=== PATIENT | female | born 1945 | race Caucasian/White ===

== ENCOUNTER 2016-06-05 20:09 | Inpatient (IN) | payer OTHER, MEDICARE ==
--- NOTE | ~2016-06-05 | EKG ---
PATIENT: ELIZABETH PEREZ UNIT #: [id number] Ventricular Rate: 152 BPM Atrial Rate: 147 BPM QRS Duration: 78 ms Q-T Interval: 342 ms QTC Calculation(Bezet): 543 ms Calculated R [place]: -9 degrees Calculated T [place]: -33 degrees Diagnosis Line: Atrial fibrillation with rapid ventricular Diagnosis Line: response Diagnosis Line: ST and T wave abnormality, consider lateral ischemia Diagnosis Line: Abnormal ECG Diagnosis Line: When compared with ECG of 15-DEC-2015 13:21, Diagnosis Line: Significant changes have occurred Diagnosis Line: Confirmed by FREDI SHER MD ([id number]) on Diagnosis Line: 06/06/2016 10:49:01 PM INTERPRETING MD: CHRISTO
--- NOTE | ~2016-06-05 | CR72 ---
[facility] A Service of [facility] RADIOLOGY TEXT RESULTS PATIENT: ELIZABETH PEREZ LOCATION: [facility] : 45 UNIT #: [id number] AGE: [address]: Miguel Angel Alvarenga MD SEX: F ORDER DR: [id number] [address] [address] [id number] E MR#: [id number] #: [id number] NAME: ELIZABETH PEREZ : 1945 SEX: F STUDY DATE/TIME: 06/05/2016 19:50 UNIT: JERMAINE ROOM: STUDY DESCRIPTION: CR Chest Single View Portable Attending Physician: Danay Mustafa M.D. Ordering Physician: Danay Mustafa M.D. Primary Care Physician: No Primary Care Physician MEDICAL IMAGING REPORT This report is preliminary unless electronic signature is present EXAM Portable chest. DATE OF EXAM 06/05/2016 INDICATIONS Weakness, shortness of air since 06/05/2016. PROCEDURE Frontal view chest. COMPARISON 12/15/2015 FINDINGS Heart size is unchanged. No dense consolidation, effusion or pneumothorax. IMPRESSION No active process. No change from 12/15/2015. Dictated by... Stefan Curry M.D. THIS IS AN ELECTRONICALLY VERIFIED REPORT Stefan Curry M.D. at 06/07/2016 7:00 AM EED/willie TD: 06/05/2016 23:04 JOB #: [id number] MEDICAL IMAGING REPORT [facility] A Service of [facility] RADIOLOGY TEXT RESULTS PATIENT: ELIZABETH PEREZ LOCATION: [facility] : 45 UNIT #: [id number] AGE: [address]: Miguel Angel Alvarenga MD SEX: F ORDER DR: COPY
--- NOTE | ~2016-06-05 | EKG ---
PATIENT: ELIZABETH PEREZ UNIT #: [id number] Ventricular Rate: 118 BPM Atrial Rate: 118 BPM P-R Interval: 150 ms QRS Duration: 78 ms Q-T Interval: 342 ms QTC Calculation(Bezet): 479 ms P [place]: 67 degrees Calculated R [place]: 8 degrees Calculated T Igo: 42 degrees Diagnosis Line: Sinus tachycardia with Premature atrial complexes Diagnosis Line: ST and T wave abnormality, consider anterior Diagnosis Line: ischemia Diagnosis Line: Abnormal ECG Diagnosis Line: When compared with ECG of 05-JUN-2016 19:35, Diagnosis Line: (unconfirmed) Diagnosis Line: Rate slower Diagnosis Line: T wave inversion no longer evident in Inferior Diagnosis Line: leads Diagnosis Line: Confirmed by FREDI SHER MD ([id number]) on Diagnosis Line: 06/06/2016 10:50:05 PM INTERPRETING MD: CHRISTO
--- NOTE | ~2016-06-05 | CO ---
Unit #: [id number] #: [id number] Patient: ELIZABETH PEREZ [id number] [address] [place], [place] [address] [id number] I MR#: [id number] NAME: ELIZABETH PEREZ ROOM: 342 Age: 71 Sex: F Admission Date: 06/05/2016 : 1945 Attending Physician: Simona Queen M.D. CONSULTATION REPORT REASON FOR CONSULTATION Tachycardia. HISTORY OF PRESENT ILLNESS This is a 71-year-old white female, who has a history of dementia and Parkinson disease and is unable to provide a history. According to the records, the patient is cared for by her sisters and noted her to be less responsive at about 2:00 p.m. They felt that she had a seizure. She was noted to have weakness to her left side and garbled speech. She was brought into the emergency room for evaluation, where she was found an elevated lactic acid of 9.2. Urinalysis consistent with urinary tract infection. Her EKG showed an elevated heart rate that was concerned for atrial fibrillation with rapid ventricular response. She was treated in the emergency room with Cardizem bolus followed by continuous infusion. She was started on antibiotics. Her blood pressure remained stable. PAST MEDICAL HISTORY 1. Hypothyroidism. 2. Dementia. 3. Parkinson's. 4. Nonsmoker. PAST SURGICAL HISTORY No previous surgeries. SOCIAL HISTORY The patient lives with her sisters. There is no history of tobacco, alcohol, or illicit drug use. FAMILY HISTORY Noncontributory. ALLERGIES No known drug allergies. HOME MEDICATIONS Levothyroxine 50 mcg daily. REVIEW OF SYSTEMS Unable to obtain, because of the patient's dementia. PHYSICAL EXAMINATION VITAL SIGNS: Blood pressure 102/56, heart rate 86, temperature is 98.5. Unit #: [id number] #: [id number] Patient: ELIZABETH PEREZ BMI is 22. GENERAL: This is a 71-year-old thin frame elderly white female, who is in no acute distress. NEUROLOGIC: She is awake, alert, and oriented, but is noted for confusion. NECK: Trachea is midline. No thyromegaly or lymphadenopathy. No jugular venous distention. HEART: S1 and S2 with no S3 or S4. No murmurs. No rubs or clicks. Regular rate and rhythm. CHEST: Clear to auscultation without rales, rhonchi, or wheezing. ABDOMEN: Soft and nontender with bowel sounds are present. EXTREMITIES: Without leg edema. SKIN: Warm and dry. DIAGNOSTIC STUDIES LABORATORY RESULTS: Sodium 139, potassium 3.7, BUN 8, creatinine 0.9, glucose 99. TSH 5.19. CK-MB 1.3. Troponin less than 0.05 x2. White count 11.0, hemoglobin 11.6, hematocrit 33.2, and platelet count is 183. IMAGING STUDIES: CT of the head shows no acute findings. Chest x-ray shows no active disease. CT of the head and neck shows no acute findings. Both vertebral arteries are widely patent. CARDIOVASCULAR STUDIES: EKG shows atrial tachycardia with a rate of 152 beats per minute with Q waves noted in the inferior leads. Nonspecific ST-wave abnormality. CARDIOVASCULAR STUDIES: Repeat EKG shows normal sinus rhythm with a rate of 86 beats per minute with QTc prolongation 521 msec. IMPRESSION 1. Atrial tachycardia converted to normal sinus rhythm. 2. Sick sinus syndrome. 3. Dementia, questionable Alzheimer's. 4. History of Parkinson disease. 5. History of hypothyroidism. PLAN 1. Cardiology was consulted for tachycardia. Review of EKG shows no atrial fibrillation. Noted for atrial tachycardia. Repeat EKG shows normal sinus rhythm. We will discontinue IV Cardizem drip. 2. Start the patient on heart rate control with atenolol. 3. The patient is currently in intensive care unit. We will move to a telemetry bed. 4. She has a CHADS2 score of 1. No need for any anticoagulation at this time. 5. We will try to maintain potassium between 4 and 5. 6. We will follow the patient with you. Thank you for allowing us to assist in this patient's care. Dictated by... Sadiq Bain A.P.R.N. for Ravi Bonds M.D. Unit #: [id number] #: [id number] Patient: ELIZABETH PEREZ AEP/modl TD: 06/07/2016 22:44 JOB #: [id number] CONSULTATION REPORT X Sadiq Bain APRN CONSULTATION REPORT
--- NOTE | ~2016-06-05 | EKG ---
PATIENT: ELIZABETH PEREZ UNIT #: [id number] Ventricular Rate: 72 BPM Atrial Rate: 72 BPM P-R Interval: 150 ms QRS Duration: 82 ms Q-T Interval: 422 ms QTC Calculation(Bezet): 462 ms P [place]: 4 degrees Calculated R [place]: 1 degrees Calculated T [place]: 19 degrees Diagnosis Line: Normal sinus rhythm with sinus arrhythmia Diagnosis Line: Normal ECG Diagnosis Line: When compared with ECG of 06-JUN-2016 07:06, Diagnosis Line: Nonspecific T wave abnormality no longer evident Diagnosis Line: in Anterolateral leads Diagnosis Line: QT has shortened Diagnosis Line: Confirmed by FREDI SHER MD ([id number]) on Diagnosis Line: 06/08/2016 12:06:47 PM INTERPRETING MD: CHRISTO
--- NOTE | ~2016-06-05 | CT71 ---
[facility] A Service of [facility] RADIOLOGY TEXT RESULTS PATIENT: ELIZABETH PEREZ LOCATION: [facility]-01 : 45 UNIT #: [id number] AGE: [address]: Miguel Angel Alvarenga MD SEX: F ORDER DR: [id number] [address] [address] [id number] I MR#: [id number] Acc #: [id number] NAME: ELIZABETH PEREZ : 1945 SEX: F STUDY DATE/TIME: 06/05/2016 20:12 UNIT: CEDOF ROOM: 91513 STUDY DESCRIPTION: CT Head Wo Contrast Attending Physician: Miguel Angel Alvarenga M.D. Ordering Physician: Danay Mustafa M.D. Primary Care Physician: No Primary Care Physician MEDICAL IMAGING REPORT This report is preliminary unless electronic signature is present EXAM CT head without contrast INDICATIONS Slurred speech, last normal at 14:00 hours today. PROCEDURE Noncontrast CT of the head. COMPARISON STUDIES 12/15/[address] exam was performed with one or more of the following radiation dose reduction techniques: automatic exposure control, adjustment of mA and/or kV according to patient size, and iterative reconstruction. FINDINGS No acute hemorrhage. No abnormal mass effect, extraaxial collection or hydrocephalus. No definitive evidence for acute early subacute large territory infarct. Paranasal sinuses and mastoid air cells clear. IMPRESSION No acute intracranial findings. Dictated by... Stefan Curry M.D. THIS IS AN ELECTRONICALLY VERIFIED REPORT [facility] A Service of [facility] RADIOLOGY TEXT RESULTS PATIENT: ELIZABETH PEREZ LOCATION: [facility] : [birth year] UNIT #: [id number] AGE: [address]: Miguel Angel Alvarenga MD SEX: F ORDER DR: Stefan Curry M.D. at 06/07/2016 7:00 AM EED/debbie TD: 06/05/2016 23:19 JOB #: [id number] MEDICAL IMAGING REPORT COPY
--- NOTE | ~2016-06-05 | HP ---
Unit #: [id number] #: [id number] Patient: ELIZABETH PEREZ [id number] [address] [place], [place] [address] [id number] I MR#: [id number] NAME: ELIZABETH PEREZ ROOM: [facility] Age: 71 Sex: F Admission Date: 06/05/2016 : 1945 Attending Physician: Miguel Angel Alvarenga M.D. HISTORY AND PHYSICAL CHIEF COMPLAINT Change in mental status. DISCUSSION This is a 71-year-old female who has a past medical history significant for history of hypothyroid, dementia, and Parkinson disease. She lives with sisters. The sisters are available at the bedside, and as per them, around 2 p.m. today she acted weird with garbled speech, was not responding, and questionable seizures. EMS was called, and she was eventually brought to the emergency room. In the emergency room, on EKG she was found to be in atrial fibrillation with rapid ventricular rate. Lactic acid was 9.2. Urine was consistent with a UTI. Eventually she was admitted in the ICU. Patient was confused and disoriented at that time and unable to give a good history, but most of the information was obtained from the sisters. PAST MEDICAL HISTORY As per sisters, she has a past medical history of: 1. Hypothyroid. 2. Dementia. 3. Parkinson disease. PAST SURGICAL HISTORY Denies any surgical intervention. SOCIAL HISTORY She does not smoke and does not drink alcohol. She lives at home with her sisters. HOME MEDICATIONS She only takes medication of Synthroid. ALLERGIES No known drug allergies. REVIEW OF SYSTEMS A 12-point review of systems is unobtainable from patient. PHYSICAL EXAMINATION GENERAL: An elderly female lying in the bed comfortably, currently not in any distress. She alert and awake. CURRENT VITAL SIGNS: Temperature 98.3, heart rate 145, respiratory rate 20, blood pressure 165/100 and repeat 146/79, and oxygen 96% on room air. HEENT: Pupils equally reactive to light and accommodation. Head is Unit #: [id number] #: [id number] Patient: ELIZABETH PEREZ normocephalic and atraumatic. NECK: Supple. No JVD. HEART: S1 and S2, tachycardia, regular. ABDOMEN: Soft, nontender, and nondistended. Bowel sounds positive. EXTREMITIES: Inspection normal. No cyanosis, no clubbing, and no edema. NEUROLOGIC: Unable to do neuro exam at this time. DIAGNOSTIC STUDIES LABORATORY: CK is less than 0.05. White count 11, hemoglobin 13, hematocrit 41, and platelets 202,000. Lactic acid level is 9.2. INR is 1. Chemistry with sodium 132, potassium 3.6, glucose 188, BUN 13, and creatinine 1.2. LFTs within normal limits. TSH is 5.19. ABG with pH of 7.43, CO2 of 28, and PO2 of 71. Urine toxicology is negative. Influenza negative. Urinalysis shows 1+ leukocyte esterase, positive nitrites, and WBCs 2-5. Troponin less than 0.05. Ammonia level 29. Tylenol less than (1) , salicylate level less than 4, and alcohol less than 5. IMAGING: CTA head and neck is negative. CT head negative. Chest x-ray negative. ASSESSMENT AND PLAN 1. Change in mental status. 2. Atrial fibrillation with rapid ventricular rate. Start on Cardizem and also Lovenox. This is new onset atrial fibrillation with no history of atrial fibrillation in the past. 3. Urinary tract infection/sepsis with increased lactic acid level. Start patient on IV fluids and sepsis protocol. 4. Questionable history of seizures. Will schedule for EEG. Dr. Olvera to evaluate. 5. History of hypothyroid. 6. Dementia. 7. Parkinson disease. 8. Deep venous thrombosis prophylaxis, on Lovenox. 1. Dictated by Tia Greer TD: 06/06/2016 15:20 JOB #: [id number] HISTORY AND PHYSICAL X X HISTORY AND PHYSICAL
--- NOTE | ~2016-06-05 | EKG ---
PATIENT: ELIZABETH PEREZ UNIT #: [id number] Ventricular Rate: 86 BPM Atrial Rate: 86 BPM P-R Interval: 184 ms QRS Duration: 80 ms Q-T Interval: 436 ms QTC Calculation(Bezet): 521 ms P [place]: 68 degrees Calculated R [place]: 12 degrees Calculated T [place]: 69 degrees Diagnosis Line: Normal sinus rhythm Diagnosis Line: Nonspecific T wave abnormality Diagnosis Line: Prolonged QT Diagnosis Line: Abnormal ECG Diagnosis Line: When compared with ECG of 05-JUN-2016 19:46, Diagnosis Line: (unconfirmed) Diagnosis Line: Premature atrial complexes are no longer Present Diagnosis Line: ST no longer depressed in Anterior leads Diagnosis Line: T wave inversion no longer evident in Anterior Diagnosis Line: leads Diagnosis Line: Confirmed by FREDI SHER MD ([id number]) on Diagnosis Line: 06/06/2016 10:54:29 PM INTERPRETING MD: CHRISTO
--- NOTE | ~2016-06-05 | EE ---
Unit #: [id number] #: [id number] Patient: ELIZABETH PEREZ [id number] [address] [address] [id number] [place] MR#: [id number] NAME: ELIZABETH PEREZ : 1945 SEX: F STUDY DATE/TIME: 06/07/2016 UNIT: C3A PCU ROOM: [facility] STUDY DESCRIPTION: Attending Physician: Simona Queen M.D. Referring Physician: Ben Olvera M.D. Primary Care Physician: No Primary Care Physician NEURODIAGNOSTICS REPORT EXAM EEG. REASON FOR THE STUDY Syncope. EEG DESCRIPTION This is an inpatient, digitally recorded, multimontage adult EEG with leads placed according to the International 10/20 System. Hyperventilation and photic stimulation were attempted. With the patient fully aroused, there is 8.5 Hz posterior background and then the patient became drowsy and stage II sleep was seen. Hyperventilation was attempted but I did not see any significant changes. Photic stimulation was attempted in an intermittent stepwise pattern up to the flash frequency of 30 Hz but I did not see any driving, asymmetry, or paroxysmal activity. No clinical events were seen. The dominant feature of this EEG was classic spike and wave type activity, mostly between F7 and T3 and some between F8 and T4. I really did not see any clear cut but some remnants in the central parietal region. No clinical events were seen. IMPRESSION This is an abnormal adult awake and asleep EEG showing independent frontotemporal discharges. Clinical correlation with the patient's history is recommended. This is an abnormal EEG and treatment may be considered to be initiated. Dictated by... Tia Arriaga/leoncio TD: 06/07/2016 16:30 JOB #: [id number] Unit #: [id number] #: [id number] Patient: ELIZABETH PEREZ NEURODIAGNOSTICS REPORT X Ben Olvera MD NEURODIAGNOSTICS REPORT
--- NOTE | ~2016-06-05 | CT17 ---
[facility] A Service of [facility] RADIOLOGY TEXT RESULTS PATIENT: ELIZABETH PEREZ LOCATION: [address] : [birth year] UNIT #: [id number] AGE: [address]: Miguel Angel Alvarenga MD SEX: F ORDER DR: [id number] [id number] [place], [place] [address] [id number] I MR#: [id number] Acc #: [id number] NAME: ELIZABETH PEREZ : 1945 SEX: F STUDY DATE/TIME: 06/05/2016 20:15 UNIT: CEDOF ROOM: 76741 STUDY DESCRIPTION: CT Angio Head Attending Physician: Miguel Angel Alvarenga M.D. Ordering Physician: Danay Mustafa M.D. Primary Care Physician: No Primary Care Physician MEDICAL IMAGING REPORT This report is preliminary unless electronic signature is present EXAM CT angio head FINDINGS Please see CT angio neck for results. Dictated by... Saul Lozano M.D. THIS IS AN ELECTRONICALLY VERIFIED REPORT Saul Lozano M.D. at 06/07/2016 12:08 AM GABRIELE/debbie TD: 06/05/2016 23:48 JOB #: [id number] MEDICAL IMAGING REPORT COPY
--- NOTE | ~2016-06-05 | DS ---
Unit #: [id number] #: [id number] Patient: ELIZABETH PEREZ [id number] [address] [place], [place] [address] [id number] I MR#: [id number] NAME: ELIAZBETH PEREZ ROOM: 342 Age: 71 Sex: F Admission Date: 06/05/2016 : 1945 Discharge Date: 06/09/2016 Attending Physician: Cruz Perry M.D. Primary Care Physician: No Primary Care Physician DISCHARGE SUMMARY REASON FOR ADMISSION Change in mental status. HISTORY OF PRESENT ILLNESS The patient is a 71-year-old female with underlying history of hypothyroidism, dementia likely mild to moderate, Parkinsonism disease, prior history of seizure disorder who presents secondary to mental status confusion. Apparently, she lives at home with her sister. She was noted to have initial elevated lactic acid level of 9.2. Urinalysis was positive for UTI. She was subsequently admitted to the ICU. She was gradually transitioned to telemetry floor. Consultation was placed to neurology services who recommended Vimpat 100 mg p.o. b.i.d. as well as outpatient followup with Dr. Matias of neurology. Her EEG was noted to be abnormal. Consultation was also placed secondary to prior history of sick sinus syndrome as well as cardiac disease to Dr. Bonds of cardiology services. The patient underwent 2D echocardiogram which did reveal ejection fraction of 60%, mild aortic valve calcification without any evidence of aortic stenosis. Cardiology cleared patient yesterday. She is currently in normal sinus. Final urine culture did reveal ESBL. She was appropriately treated with IV antibiotics which will be transitioned to Bactrim one tablet p.o. b.i.d. at time of discharge. Her B12 level was also noted to be low. She will be initiated on B12 IM q.24 through discharge and into rehab and at time after rehab, this may be continued on a weekly basis by her primary care physician. Secondary to chronic deconditioning, physical and occupational therapy services saw and evaluated the patient and recommended rehab at time of discharge. Appropriate arrangements will be made for her to be transitioned to rehab once bed is available and transportation is arranged. The patient will be discharged to rehab facility for ongoing care. FINAL DISCHARGE DIAGNOSES 1. Change in mental status, likely secondary to underlying urinary tract infection. 2. Dementia, likely mild to moderate. 3. Abnormal EEG/seizure disorder. Unit #: [id number] #: [id number] Patient: ELIZABETH PEREZ 4. Sepsis on admission with increased lactic acid level/positive urinalysis. 5. Atrial fibrillation with rapid ventricular response on admission, now converted to normal sinus. 6. Prior history of sick sinus syndrome. 7. Hypothyroidism. 8. Parkinsonism disease. FINAL DISCHARGE MEDICATIONS 1. Vimpat 100 mg p.o. b.i.d. 2. Tenormin 25 mg p.o. daily. 3. Bactrim DS one tablet p.o. b.i.d. x5 days. 4. Synthroid 50 mcg p.o. daily. 5. Vitamin B12 at 1000 mcg IM q.24 through rehab and then may be transitioned to q. week and to be set up by primary care physician. DISCHARGE CONDITION Stable. DISCHARGE DISPOSITION To rehab. Dictated by... Tia Dugan/leoncio TD: 06/10/2016 11:02 JOB #: [id number] DISCHARGE SUMMARY X Cruz Perry MD X DISCHARGE SUMMARY
--- NOTE | ~2016-06-05 | CT23 ---
[facility] A Service of [facility] RADIOLOGY TEXT RESULTS PATIENT: ELIZABETH PEREZ LOCATION: [facility]05[facility]17 : [birth year] UNIT #: [id number] AGE: [address]: Miguel Angel Alvarenga MD SEX: F ORDER DR: [id number] [facility] [address]. [place], [place] [address] [id number] I MR#: [id number] Acc #: [id number] NAME: ELIZABETH PEREZ : 1945 SEX: F STUDY DATE/TIME: 06/05/2016 20:15 UNIT: CEDOF ROOM: 20638 STUDY DESCRIPTION: CT Angio Neck Attending Physician: Miguel Angel Alvarenga M.D. Ordering Physician: Danay Mustafa M.D. Primary Care Physician: No Primary Care Physician MEDICAL IMAGING REPORT This report is preliminary unless electronic signature is present EXAM CT angiogram head and neck with IV contrast HISTORY Slurred speech today. FINDINGS IV contrast and CT angiogram head neck was performed with 3-D reconstructions. TECHNIQUE This CT exam was performed with one or more of the following radiation dose reduction techniques: automatic exposure control, adjustment of mA and/or kV according to patient size, and iterative reconstruction. CT angiogram neck: The common carotid arteries are widely patent bilaterally. Both vertebral arteries are widely patent. Mild calcified atherosclerotic plaque in the carotid bulbs bilaterally. The cervical internal carotid arteries are widely patent bilaterally with no stenosis by NASCET criteria. CT angiogram brain: The intracranial vertebral arteries and basilar artery are widely patent. origin of the right posterior cerebral artery. Tiny left posterior communicating artery. The cavernous carotid arteries are widely patent. The anterior cerebral, middle cerebral and posterior cerebral arteries are widely patent. No major vessel occlusion, aneurysm or vascular malformation. IMPRESSION 1. No acute finding. 2. No cervical carotid artery stenosis by NASCET criteria. 3. Both vertebral arteries are widely patent. [facility] A Service of [facility] RADIOLOGY TEXT RESULTS PATIENT: ELIZABETH PEREZ LOCATION: [facility]05[facility]17 : 45 UNIT #: [id number] AGE: [address]: Miguel Angel Alvarenga MD SEX: F ORDER DR: 4. No intracranial major arterial stenosis or occlusion. 5. Incidentally noted is a origin of the right posterior cerebral artery and a small left posterior communicating artery. Dictated by... Saul Lozano M.D. THIS IS AN ELECTRONICALLY VERIFIED REPORT Saul Lozano M.D. at 06/07/2016 12:05 AM GABRIELE/debbie TD: 06/05/2016 23:44 JOB #: [id number] MEDICAL IMAGING REPORT COPY
--- NOTE | ~2016-06-05 | CO ---
Unit #: [id number] #: [id number] Patient: ELIZABETH PEREZ [id number] [facility] [address] [place], [place] [address] [id number] [place] MR#: [id number] NAME: ELIZABETH PEREZ ROOM: 321 Age: 71 Sex: F Admission Date: 06/05/2016 : 1945 Attending Physician: Miguel Angel Alvarenga M.D. Consultation Date: 06/06/2016 CONSULTATION REPORT PRIMARY CARE PHYSICIAN Dr. Azar. REASON FOR CONSULTATION Mental status changes. PATIENT IDENTIFICATION This is a 71-year-old, apparently right-handed, white female, who is evaluated in room ICU, bed [address] [facility]. SOURCE OF INFORMATION Essentially the ER intake and some evaluation done by admitting and Cardiology. PROBLEM LIST 1. History of hypothyroidism. 2. History of dementia. 3. Questionable Parkinson disease. 4. Now with UTI and possible sepsis. 5. She had what sounds like atrial tachycardia. 6. I have no history and physical or the family members available to corroborate what happened. Apparently, there was an episode of confusion. HISTORY OF PRESENT ILLNESS This is a 71-year-old female, who actually presented to the emergency room last night around 1925. She came via EMS. Apparently, there was a time of confusion. So far, I have no indication anywhere that she has had a seizure or generalized convulsive type episode. 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 She does not remember anything. She knows that she is in [place], and beyond that, she does not know much. She was given some Cardizem. She was given some other medications and she is back to baseline. Cardiology had seen her, and they are recommending to observe, and they have started small dose of beta blockers. Her urinalysis showed leukocyte esterase positive, nitrites positive, 2 to 5 wbc's, and bacteria positive. Other labs are not really that bad. There is nothing suggesting focal that would be something to worry about focally. Her pO2 was also low at 71.5. Her blood pressure was okay, and we have a tachyarrhythmia of 145 at one time. Blood pressure was 165/100. The patient is stable right now. She does not look really toxic. No falls or injuries known to me. Unit #: [id number] #: [id number] Patient: ELIZABETH PEREZ Nothing suggesting meningismus. No migraine. PAST MEDICAL HISTORY Essentially as discussed above. PAST SURGICAL HISTORY Apparently none. ALLERGIES None. HOME MEDICATIONS Apparently are Synthroid, iron, and multivitamin. FAMILY HISTORY Details not known as the patient cannot tell me. SOCIAL HISTORY Details not known as the patient cannot tell me because of her dementia. She apparently is single. REVIEW OF SYSTEMS Cannot be obtained because of her current cognitive change. PHYSICAL EXAMINATION VITAL SIGNS: Temperature 98.5, pulse is 75, respirations 20, blood pressure 127/67, O2 sats were 95% to 99%. Weight 136 pounds. BMI was 22. NEUROLOGIC: The patient is awake. She is alert. She is oriented to herself. She knows she is in [place]; beyond that, she cannot tell me. Question about right/left confusion. She can name. She can follow commands. Cranial nerve examination demonstrates respond to threats in all kohler. Eye movements are conjugate. I did not see any ptosis. I did not see any nystagmus. Extraocular movements are intact. Sensation on the face and scalp are normal. Strength of muscles of facial expression normal. Hearing seemed to be intact bilaterally. Tongue was midline. Head turning was spontaneous. A motor examination demonstrated normal bulk, tone. Strength was essentially 5-/5 all over. Sensory examination is intact for soft touch and pain sensation. No extinction was seen. Romberg was not evaluated. Gait examination was deferred. I cannot get any reflexes. Toes are equivocal. Coordination was slow, but no past-pointing or other abnormalities seen. DIAGNOSTIC STUDIES LABORATORY RESULTS: Reviewed. Unit #: [id number] #: [id number] Patient: ELIZABETH PEREZ Ammonia level was 29. Troponin was 0.06. TSH was 5.19. Urinalysis is as discussed. IMPRESSION Very nonspecific confusional type state. There is nothing suggesting epilepsy. There is nothing suggesting seizure. There is nothing suggesting meningitis. There is nothing suggesting urinary tract infection. There is nothing suggesting central nervous system infection. I have no family to discuss with. Cardiology is following the patient. I will await for something more information before going any further. Even if it was a single passing out episode, I do not think I can justify this as epilepsy, so my recommendation is for medically evaluated to do outpatient workup. Urinary tract infection can cause mental status changes in patient who has history of dementia and is cognitively compromised, so per Neurology, I will observe. Call me for any other questions, issues, or concerns. I will be more than glad to re-evaluate if needed. Dictated by... Tia Arriaga/hayder TD: 06/07/2016 05:42 JOB #: [id number] CONSULTATION REPORT X Ben Olvera MD X CONSULTATION REPORT
[2016-06-05 20:09] LABS: POC - CKMB 1.3 ng/mL (0.0-7.9); POC - TROPONIN <0.05 ng/mL (<=0.05)
[2016-06-05 20:15] LABS: POC - CREATININE 0.89 mg/dL (0.44-1.03); POC - GFR >60.0 mL/min (>60)
[2016-06-05 20:16] LABS: BASOPHIL# 0.1 X10e3 (0-0.3); BASOPHIL% 0.6 % (0-2.5); HEMATOCRIT 41.6 % (35.0-45.0); HEMOGLOBIN 13.7 gm/dL (12.0-16.0); LYMPHOCYTE# 1.5 X10e3 (1.0-3.5); LYMPHOCYTE% 12.4 % (17.0-45.0); MEAN CELL VOLUME 90.5 FL (83-96); MEAN CORPUSCULAR HEMOGLOBIN 29.8 PG (28-34); MEAN CORPUSCULAR HGB CONC 32.9 g/dL (30-36); MEAN PLATELET VOLUME 10.2 FL (6.5-11.5); MONOCYTE# 0.5 X10e3 (0-1.0); MONOCYTE% 4.2 % (3.0-12.0); NEUTROPHIL# 9.8 X10e3 (1.5-7.1); NEUTROPHIL% 82.8 % (40-75); PLATELET COUNT 202 X10e3 (140-420); RED CELL DISTRIBUTION WIDTH 13.7 % (11.0-15.5); WHITE BLOOD COUNT 11.9 X10e3 (4.0-10.5)
[2016-06-05 20:17] LABS: DIFF IND NO
[2016-06-05 20:25] LABS: PROTHROMBIN TIME (PATIENT) 10.3 SECONDS (9.6-11.5)
[2016-06-05 20:26] LABS: PARTIAL THROMBOPLASTIN TIME <20.0 SECONDS (23.5-31.3)
[2016-06-05 20:51] LABS: ALBUMIN SERUM 4.3 g/dL (3.5-5.0); BILIRUBIN, DIRECT 0.2 mg/dL (0.0-0.2); BILIRUBIN,INDIRECT 0.4 mg/dL (0.0-0.9); BILIRUBIN,TOTAL 0.6 mg/dL (0.2-2.0); BUN/CREATININE RATIO 10.83; CALCIUM SERUM 9.3 mg/dL (8.4-10.2); CREATININE SERUM 1.2 mg/dL (0.6-1.4); GLOM FILT RATE Estimated 47.1 mL/min (>60); POTASSIUM 3.6 mmol/L (3.5-5.1); PROTEIN TOTAL SERUM 7.6 g/dL (6.0-8.3)
[2016-06-05 21:05] LABS: URINE SOURCE CLEAN CATCH
[2016-06-05 21:13] LABS: ARTERIAL BLD GAS O2 SATURATION 94.1 % (90.0-100.0); ARTERIAL BLOOD GAS CARBOXY HB 0.6 %sat (0.0-9.0); ARTERIAL BLOOD GAS HCO3 18.9 mmol/L; ARTERIAL BLOOD GAS MET HB 0.9 %sat (0.0-2.0); ARTERIAL BLOOD GAS pH 7.437 (7.350-7.450)
[2016-06-05 21:14] LABS: ARTERIAL BLOOD GAS ART SITE LEFT BRACHIAL; ARTERIAL BLOOD GAS PO2 71.5 mmHg (80.0-100); ARTERIAL DRAW? YES
[2016-06-05 21:16] LABS: URINE APPEARANCE CLEAR; URINE BILIRUBIN NEG (NEG); URINE BLOOD TRACE (NEG); URINE COLOR YELLOW; URINE GLUCOSE NEG (NEG); URINE KETONE 1+ (NEG); URINE LEUKOCYTE ESTERASE 1+ (NEG); URINE NITRATE POS (NEG); URINE PROTEIN NEG (NEG); URINE SPECIFIC GRAVITY 1.015 (1.003-1.035); URINE UROBILINOGEN 0.2 MG/DL (NEG)
[2016-06-05 21:18] LABS: AMPHETAMINE NEG (NEG); BARBITURATES NEG (NEG); BENZODIAZEPINES NEG (NEG); COCAINE NEG (NEG); MARIJUANA NEG (NEG); OPIATES NEG (NEG); TRICYCLIC ANTIDEPRESSANTS NEG (NEG); U METHADONE NEG (NEG)
[2016-06-05 21:20] LABS: CULTURE INDICATED? YES; URBCS1 AUWI 0-2 /[HPF] (0-2); URINE BACTERIA AUWI 4+ (NEGATIVE); URINE SQUAMOUS EPITHELIAL CELL OCC /[HPF]
[2016-06-05 21:23] LABS: INFLUENZA A NEG (NEG); INFLUENZA B NEG (NEG)
[2016-06-05 21:50] LABS: POC - CKMB 1.3 ng/mL (0.0-7.9); POC - TROPONIN <0.05 ng/mL (<=0.05)
[2016-06-05 22:11] LABS: SALICYLATE <4.0 mg/dL
[2016-06-05 22:13] LABS: ACETAMINOPHEN <10 ug/mL; ALCOHOL BLOOD <5 mg/dL ([0,])
[2016-06-05] MEDS ORDERED: SYNTHROID (22:24)
[2016-06-05] MEDS ORDERED: SYNTHROID PO (23:13)
[2016-06-06 08:36] LABS: BASOPHIL% 0.2 % (0-2.5); HEMATOCRIT 33.2 % (35.0-45.0); LYMPHOCYTE# 0.7 X10e3 (1.0-3.5); LYMPHOCYTE% 6.1 % (17.0-45.0); MEAN CELL VOLUME 88.6 FL (83-96); MEAN CORPUSCULAR HEMOGLOBIN 31.1 PG (28-34); MEAN CORPUSCULAR HGB CONC 35.1 g/dL (30-36); MEAN PLATELET VOLUME 8.7 FL (6.5-11.5); MONOCYTE# 0.6 X10e3 (0-1.0); MONOCYTE% 5.2 % (3.0-12.0); NEUTROPHIL# 9.8 X10e3 (1.5-7.1); NEUTROPHIL% 88.5 % (40-75); PLATELET COUNT 183 X10e3 (140-420); RED BLOOD COUNT 3.74 X10e (3.90-5.30)
[2016-06-06 08:37] LABS: DIFF IND NO; HEMOGLOBIN 11.6 gm/dL (12.0-16.0)
[2016-06-06 09:04] LABS: ALBUMIN SERUM 3.4 g/dL (3.5-5.0); ALKALINE PHOSPHATASE 51 U/L (32-92); ALT (SGPT) 15 U/L (10-40); AST (SGOT) 23 U/L (10-42); BILIRUBIN,TOTAL 0.7 mg/dL (0.2-2.0); BLOOD UREA NITROGEN 8 mg/dL (9-23); BUN/CREATININE RATIO 8.88; CALCIUM SERUM 8.5 mg/dL (8.4-10.2); CARBON DIOXIDE 21 mmol/L (22-31); CHLORIDE 109 mmol/L (100-111); CREATININE SERUM 0.9 mg/dL (0.6-1.4); GLOM FILT RATE Estimated ABOVE60 mL/min (>60); GLUCOSE FASTING 99 mg/dL (70-110); POTASSIUM 3.7 mmol/L (3.5-5.1); PROTEIN TOTAL SERUM 5.8 g/dL (6.0-8.3); SODIUM 139 mmol/L (135-145)
[2016-06-06 14:03] LABS: FOLATE (FOLIC ACID) 16.3 ng/mL (>5.8)
[2016-06-07 15:19] LABS: HEMATOCRIT 34.7 % (35.0-45.0); HEMOGLOBIN 11.8 gm/dL (12.0-16.0); MEAN CELL VOLUME 90.5 FL (83-96); MEAN CORPUSCULAR HEMOGLOBIN 30.7 PG (28-34); MEAN CORPUSCULAR HGB CONC 33.9 g/dL (30-36); MEAN PLATELET VOLUME 8.8 FL (6.5-11.5); RED BLOOD COUNT 3.84 X10e (3.90-5.30); WHITE BLOOD COUNT 8.8 X10e3 (4.0-10.5)
[2016-06-07 15:36] LABS: BLOOD UREA NITROGEN 9 mg/dL (9-23); CALCIUM SERUM 8.4 mg/dL (8.4-10.2); CARBON DIOXIDE 23 mmol/L (22-31); CHLORIDE 112 mmol/L (100-111); CREATININE SERUM 0.9 mg/dL (0.6-1.4); GLOM FILT RATE Estimated ABOVE60 mL/min (>60); GLUCOSE FASTING 139 mg/dL (70-110); MAGNESIUM 1.7 mg/dL (1.6-3.0); POTASSIUM 3.3 mmol/L (3.5-5.1); SODIUM 140 mmol/L (135-145)
[2016-06-08 06:13] LABS: HEMATOCRIT 31.9 % (35.0-45.0); HEMOGLOBIN 10.9 gm/dL (12.0-16.0); MEAN CELL VOLUME 89.7 FL (83-96); MEAN CORPUSCULAR HEMOGLOBIN 30.7 PG (28-34); MEAN CORPUSCULAR HGB CONC 34.2 g/dL (30-36); MEAN PLATELET VOLUME 8.3 FL (6.5-11.5); RED BLOOD COUNT 3.55 X10e (3.90-5.30); WHITE BLOOD COUNT 7.8 X10e3 (4.0-10.5)
[2016-06-08 06:57] LABS: ALBUMIN SERUM 2.8 g/dL (3.5-5.0); ALKALINE PHOSPHATASE 44 U/L (32-92); ALT (SGPT) 26 U/L (10-40); AST (SGOT) 127 U/L (10-42); BILIRUBIN,TOTAL 0.2 mg/dL (0.2-2.0); BLOOD UREA NITROGEN 10 mg/dL (9-23); CALCIUM SERUM 8.2 mg/dL (8.4-10.2); CARBON DIOXIDE 24 mmol/L (22-31); CHLORIDE 108 mmol/L (100-111); CREATININE SERUM 0.8 mg/dL (0.6-1.4); GLOM FILT RATE Estimated ABOVE60 mL/min (>60); GLUCOSE FASTING 94 mg/dL (70-110); MAGNESIUM 1.8 mg/dL (1.6-3.0); POTASSIUM 3.9 mmol/L (3.5-5.1); PROTEIN TOTAL SERUM 5.1 g/dL (6.0-8.3); SODIUM 138 mmol/L (135-145)
[2016-06-09 05:19] LABS: HEMOGLOBIN 11.4 gm/dL (12.0-16.0); MEAN CELL VOLUME 89.5 FL (83-96); MEAN CORPUSCULAR HEMOGLOBIN 30.1 PG (28-34); MEAN CORPUSCULAR HGB CONC 33.6 g/dL (30-36); MEAN PLATELET VOLUME 8.8 FL (6.5-11.5); RED BLOOD COUNT 3.8 X10e (3.90-5.30); RED CELL DISTRIBUTION WIDTH 14.3 % (11.0-15.5); WHITE BLOOD COUNT 7.1 X10e3 (4.0-10.5)
[2016-06-09 06:40] LABS: CALCIUM SERUM 8.1 mg/dL (8.4-10.2); GLOM FILT RATE Estimated 58.1 mL/min (>60); POTASSIUM 4.2 mmol/L (3.5-5.1)
[2016-06-09 15:28] LABS: CHOLESTEROL 157 mg/dL (0-200); HDL CHOLESTEROL 49 mg/dL (35-95); LDL CHOLESTEROL 82 mg/dL ([, -130]); LDL/HDL RATIO 2 RATIO (0-4); TRIGLYCERIDES 130 mg/dL (10-160)
[2016-06-10 06:13] LABS: BLOOD UREA NITROGEN 12 mg/dL (9-23); BUN/CREATININE RATIO 13.33; CALCIUM SERUM 8.3 mg/dL (8.4-10.2); CARBON DIOXIDE 26 mmol/L (22-31); CHLORIDE 107 mmol/L (100-111); CREATININE SERUM 0.9 mg/dL (0.6-1.4); GLOM FILT RATE Estimated ABOVE60 mL/min (>60); GLUCOSE FASTING 84 mg/dL (70-110); MAGNESIUM 1.9 mg/dL (1.6-3.0); POTASSIUM 4.1 mmol/L (3.5-5.1); SODIUM 135 mmol/L (135-145)
[2016-06-10 09:46] LABS: ALBUMIN SERUM 3.1 g/dL (3.5-5.0); BILIRUBIN, DIRECT 0.1 mg/dL (0.0-0.2); BILIRUBIN,INDIRECT 0.2 mg/dL (0.0-0.9); BILIRUBIN,TOTAL 0.3 mg/dL (0.2-2.0); PROTEIN TOTAL SERUM 5.7 g/dL (6.0-8.3)
== END 2016-06-10 13:12 | DRG 872 ==
LOC: CED 20:09 → CEDOF 23:00 → CICCU2 06-06 08:25 → C3A PCU 06-07 04:03
PROVIDERS: Family Medicine; Internal Medicine; Internal Medicine Cardiovascular Disease; Psychiatry & Neurology Neurology; Student in an Organized Health Care Education/Training Program
PROC: 3E0234Z Introduction of Serum, Toxoid and Vaccine into Muscle, Percutaneous Approach (ICD-10-PCS; principal; 2016-06-05)
PROC: B246YZZ Ultrasonography of Right and Left Heart using Other Contrast (ICD-10-PCS; 2016-06-06)
DX: A41.9 Sepsis, unspecified organism (principal); G20 Parkinson's disease; N39.0 Urinary tract infection, site not specified; F02.80 Dementia in other diseases classified elsewhere, unspecified severity, without behavioral disturbance, psychotic disturbance, mood disturbance, and anxiety; E03.9 Hypothyroidism, unspecified; I48.91 Unspecified atrial fibrillation; Z23 Encounter for immunization
CPT/HCPCS: 36415; 36600; 51702; 70450; 70496; 70498; 71010; 80048; 80053; 80061; 80076; 80202; 80307; 81003; 82140; 82553; 82565; 82607; 82746; 82803; 82947; 83605; 83735; 84443; 84484; 85025; 85027; 85610; 85730; 87040; 87086; 87088; 87186; 87804; 90732; 92523-GN; 92610; 93005; 93306; 95816; 96361; 96374; 97162; 97166; 97530; 97535; 99285; G0009; G0480; G8978-GP; G8979-GP; G8987-GO; G8988-GO; G8996-GN; G8997-GN; G8998-GN; J1630; J1650; J1956; J3370; J3420; J3475; Q9967